=== PATIENT | female | born 1970 | race Two or more races ===

== ENCOUNTER 2020-02-17 10:43 | Outpatient (CLI) | payer MEDICAID | END 2020-02-17 23:59 | disposition home or self-care (01) | LOC: LAB 10:43 | PROVIDERS: ATTEND Student in an Organized Health Care Education/Training Program | DX: Z01.812 Encounter for preprocedural laboratory examination (principal); Z11.59 Encounter for screening for other viral diseases ==

== ENCOUNTER 2020-02-20 10:38 | Day surgery (SDC) | payer MEDICAID ==
[~2020-02-20] VITALS: Ht 154.9 cm; Wt 90.7 kg
[~2020-02-20 10:38] MED LIST: ANESTHESIA TRAY IN PYXIS 1 EA TRAY MC ONE
[2020-02-20] MEDS ORDERED: LIDOCAINE HCL/MPF 1% 30 ML VIAL IJ ONE (11:23)
[2020-02-20] MEDS ORDERED: BUPIVACAINE 0.5 % PF 150 MG/30 ML VIAL ONE (11:23)
[2020-02-20] MEDS ORDERED: IOHEXOL 240MG/ML 50 ML IV ONE (11:23)
[2020-02-20] MEDS ORDERED: BETA ACET/BET NA PHOS MDV 6 MG/ML VIAL ONE (11:23)
[2020-02-20] MEDS ORDERED: IBUP-51 PO (11:39)
[2020-02-20] MEDS ORDERED: OMEP20TA20 PO (11:39)
[2020-02-20] MEDS ORDERED: FAMOTIDINE/PF INJ 20 MG/2 ML VIAL IV ONE (12:04)
[2020-02-20] MEDS ORDERED: HYDROCODONE/APAP 10/325MG 1 EA TABLET PO PRN (13:30)
--- NOTE | 2020-02-20 14:48 | NUR ---
rn notes pt dc at this time. IV lines removed, minimal bleeding noted. DC instructions given, no further questions asked. no pictures needed to be taken. Pt not missing any valuables. Pt picked up by family member
== END 2020-02-20 14:00 | disposition home or self-care (01) ==
LOC: DS 10:38 → MED 10:48 → UNDOADMIN 10:48 → DS 14:00 → MED 14:25 → UNDODISIN 15:08
PROVIDERS: ATTEND Student in an Organized Health Care Education/Training Program
DX: M25.851 Other specified joint disorders, right hip (principal); D64.9 Anemia, unspecified; E66.01 Morbid (severe) obesity due to excess calories; K21.9 Gastro-esophageal reflux disease without esophagitis
CPT/HCPCS: 27095; 73501; 77002; 84703; A6402; J0702; J2704; J3490 ×4; Q9966; G0378